=== PATIENT | male | born 1985 | race Caucasian/White ===

== ENCOUNTER → 2017-12-17 | Outpatient (CLI) | payer BC | LOC: RAD 15:39 | DX: G89.29 Other chronic pain (principal); M54.5 Low back pain ==

== ENCOUNTER → 2019-07-10 | Outpatient (CLI) | payer BC | LOC: RAD 14:55 | DX: M41.84 Other forms of scoliosis, thoracic region (principal); M48.02 Spinal stenosis, cervical region; M47.812 Spondylosis without myelopathy or radiculopathy, cervical region; M50.321 Other cervical disc degeneration at C4-C5 level ==

== ENCOUNTER → 2019-07-28 | Outpatient (CLI) | payer BC ==
[~2019-07-28] MED LIST: FLEXERIL PO; LORCET 5-325 M1 EACH PO; NEURONTIN 300300 M1 PO
== END ==
LOC: MRI 14:33
DX: M48.02 Spinal stenosis, cervical region (principal); M54.16 Radiculopathy, lumbar region; M54.12 Radiculopathy, cervical region

== ENCOUNTER → 2019-07-30 | Outpatient (CLI) | payer BC ==
[~2019-07-30] VITALS: Ht 182.9 cm; Wt 97.5 kg
[2019-07-30 14:25] VITALS: BP 144/81
--- NOTE | 2019-07-30 14:45 | NUR ---
Pain Clinic Assessment: 1. History of Osteoarthritis: SPINE History of Rheumatoid Arthritis: Not Applicable 2. Height: 6 ft. 0 in. 182.9 cm. Weight: 215.0 lb. oz. 97.524 kg. Patient's BMI: 29.2 3. Vital Signs: BP: 144/81 Pulse: 93 Resp: 14 Temp: 02 Sat: 97 ECG Mon: 4. Pain Intensity: 5 5. Fall Risk: Dizziness: N Needs help standing or walking: N Fallen in the last 3 months: N Fall risk comments: 6. Patient on Blood Thinner: None 7. History of Hypertension: N 8. Opioid Therapy greater than 6 weeks: N Opiate Contract Signed: 9. Risk Assessment Tool Provided: 10. Functional Assessment Tool: 11. Recreational Drug Use: Past greater than 3 mos Drug Type: MAJUANIA Tobacco Use: Current Every Day Smoker Tobacco Type: Cigarettes Amount or Packs/day: 1 How Many Years: 20 Alcohol Use: Yes Frequency: Weekly Quant: 24
--- NOTE | 2019-08-05 07:54 | HPC ---
[facility] [place] [address] [place] [address] PAIN MANAGEMENT CONSULTATION Name: FANNIE IQBAL [id number] Admission: 07/30/19 Attend Phys: Jonnathan Nichole DO Discharge: Date of : 81 Report #: [id number] THIS REPORT FOR: //name// CC: Jonnathan Kern MD DATE OF SERVICE: 07/30/2019 REFERRING PHYSICIAN: Queta Kern MD CHIEF COMPLAINT: Right upper extremity pain. HISTORY OF PRESENT ILLNESS: As you know, the patient is a very pleasant 34-year-old male who reports acute onset of right upper extremity pain that began in 05/2019. 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 The patient states that it has become very difficult for him to go about his activities of daily living due to ongoing pain issues. He sought chiropractic manipulation x 4 without significant improvement. He was advised that due to lack of improvement with the 4 sessions that he should look for more aggressive treatment options. The patient sought evaluation through his primary care physician who sent him for MRI of the cervical spine and thoracic spine. The patient reports he has not been advised of the findings of these imaging studies. He was subsequently referred to our clinic. The patient indicates today pain is continuous, describes the pain as burning, sharp, tender, numbness and tingling; places current pain score 5/10, daily average at 5/10, worst pain has been 9/10. The patient states pain is worse in the morning hours and tends to improve slightly through the day. He reports no specific treatment option that has been effective for pain control. PAST MEDICAL HISTORY: None. PAST SURGICAL HISTORY: 1. Oral surgery in 1997. 2. Orthopedic surgery in 2017. SOCIAL HISTORY: The patient smokes 1 pack of tobacco per day, has done so for 20 years. Denies IV or illicit drug use. Admits to approximately 24 alcoholic beverages per week. 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 He is working, not receiving workmen's compensation nor is he trying to obtain disability benefits. He is not in litigation in regards to pain. He is unaccompanied today. [facility] [address] [place] [address] PAIN MANAGEMENT CONSULTATION Name: FANNIE IQBAL Room #: REG CECILY Donnelly#: [id number] Admission: 07/30/19 Attend Phys: Jonnathan Nichole DO Discharge: Date of : 81 Report #: [id number] REVIEW OF SYSTEMS: Positive for changes in bowel movements, numbness and tingling sensations, right upper extremity pain with paresthesias. All other review of systems negative per 12-point review of systems other than those listed in history of present illness. Pain impact score rated at 20/70 indicating mild interference of daily activities secondary to pain. ALLERGIES: No known drug allergies. CURRENT MEDICATIONS: Cyclobenzaprine 10 mg t.i.d. p.r.n. pain, hydrocodone/acetaminophen 5/325 one tab every 8 hours p.r.n. for pain. IMAGING: X-ray of the cervical spine obtained on 07/10/2019 shows reversal of normal cervical lordosis, mild to moderate cervical spondylosis with degenerative disk changes at C4-C5 and C6-C7. MRI of the cervical spine obtained on 07/28/2019 actually shows unremarkable findings. There is no disk desiccation, no central canal neural foraminal stenosis. This refutes the x-ray findings. MRI of thoracic spine obtained on 07/28/2019 shows unremarkable MRI of thoracic spine. PHYSICAL EXAMINATION: VITAL SIGNS: Blood pressure 144/81, pulse is 93, respiratory rate 14 and unlabored. The patient is 97% on room air, height 6 feet tall, weight 215 pounds, BMI calculated 29.2. GENERAL: Well-developed, well-nourished, well-hydrated 34-year-old male appearing stated age, pain is rated around 5/10. HEENT: Normocephalic, atraumatic. Pupils equal, round, reactive to light. Extraocular muscles are intact. Sclerae nonicteric without injection. Speech is fluent. The patient deemed a good historian. The patient does smell strongly of tobacco smoke. LUNGS: Clear, no wheeze, rhonchi or rales. CARDIOVASCULAR: Regular. No appreciable gallop, no rub. ABDOMEN: Soft, nontender, nondistended, normoactive bowel sounds. EXTREMITIES: Show no clubbing, no cyanosis, no edema. MUSCULOSKELETAL: The patient has equal and symmetrical upper extremity strength 5/5. Slight giveaway strength noted with abduction of the shoulder above [address] up to 110 degrees. The tactile sensations are mildly reduced in the distribution of C7 and C8 on the right based on subjective reports. 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 Spurling's test is negative. There is no palpatory tenderness over the cervical spine. No spinous process tenderness. There is some palpatory tenderness over the strap muscles on the right when compared to left. ASSESSMENT: [facility] [address] [place] [address] PAIN MANAGEMENT CONSULTATION Name: FANNIE IQBAL Room #: REG CLDimitris Childress#: [id number] Admission: 07/30/19 Attend Phys: Jonnathan Nichole DO Discharge: Date of : 81 Report #: [id number] 1. Likely brachial plexopathy. 2. Anterograde and retrograde ulnar neuropathy, right sided. PLAN: 1. Based on today's physical exam and history the patient provides, the description the patient uses in regards to pain as well as location of symptoms, it would appear he is suffering from a neuropathic pain generator. I am pleased to advise the patient that the cervical MRI and thoracic MRI are completely normal. There is no noted pathology. X-ray imaging done in June indicated disk desiccation and arthritic changes. This has been refuted completely by the MRI, which shows normal cervical findings. We discussed with the patient the findings of the MRI and how they showed no pathology. This is not the source of the patient's symptoms. Given the job, the patient is currently employed and pursuing he spent a good majority of his day in a position with his arms above his head. I believe this is leading to a brachial plexopathy, the exacerbating factors fit with plexopathy. We would recommend further evaluation for brachial plexopathy/ulnar neuropathy. I am unable to elicit any carpal tunnel in this patient. Further evaluation for brachial plexopathy would be recommended. There is a possibility if the patient is suffering a brachial plexopathy, adjustments will be needed in his daily work activity. 2. The patient will be sent for EMG of the right upper extremity. We have taken the liberty of providing the patient a referral for EMG. Once this has been completed, we will review the findings and discuss with the patient of those findings and recommendations. 3. We have started the patient on gabapentin for neuropathic pain control. He will start 1 tab p.o. at bedtime for 3 nights, then increase to 2 tabs p.o. at bedtime for 3 nights, then 3 tabs p.o. at bedtime for 3 nights. If no side effects such as sleepiness, disorientation, confusion, mental slowing and no improvement in symptoms, continue to escalate the dose starting in the morning, reaching 900 mg b.i.d. The patient was given tablets to begin this titration. He was also given a titration recommendations in written form, so he can follow them. If any questions or concerns in regards to medication, contact our clinic. 4. We will see the patient back in followup visit once he has completed his EMG of the right upper extremity. We will review those findings and discuss the options for treatment and any limitations if necessary from a work standpoint, assuming a brachial plexopathy. 5. We wish to thank Dr. Queta Kern for the opportunity to see this patient in consultation. We will keep you apprised of [place] [address] PAIN MANAGEMENT CONSULTATION Name: FANNIE IQBAL Room #: REG CECILY Donnelly#: [id number] Admission: 07/30/19 Attend Phys: Jonnathan Nichole DO Discharge: Date of : 81 Report #: [id number] address suspected brachial plexopathy and possible ulnar neuropathy. Again, we wish to thank you for the opportunity to see this patient in consultation. <ELECTRONICALLY SIGNED> By: Jonnathan Nichole DO 08/05/19 [id number] Jonnathan Nichole DO /nt
== END ==
LOC: PAIN 07:05
DX: G56.21 Lesion of ulnar nerve, right upper limb (principal); Z79.899 Other long term (current) drug therapy

== ENCOUNTER → 2021-04-04 | Outpatient (CLI) | payer BC | LOC: ULTRA 14:58 | PROVIDERS: ATTEND Family Medicine | DX: N50.812 Left testicular pain (principal); N50.82 Scrotal pain ==